=== PATIENT | male | born 1975 | race Caucasian/White ===

== ENCOUNTER → 2019-03-25 | Outpatient (CLI) | payer OTHER | LOC: EDSTATUS 11:44 → LAB 12:59 → LAB SHORT 12:59 | DX: J02.9 Acute pharyngitis, unspecified (principal) | CPT/HCPCS: 87081 ==

== ENCOUNTER 2024-05-09 07:10 | Day surgery (SDC) | payer OTHER ==
[~2024-05-09] VITALS: Ht 185.4 cm; Wt 119.2 kg
[~2024-05-09 07:10] MED LIST: Lactated Ringer's 1,000 ML IV SCH
[2024-05-09 07:54] VITALS: BP 142/85
--- NOTE | 2024-05-09 07:59 | NUR ---
History, Chart, Medications and Allergies reviewed before start of procedure. Lungs clear T/O to Auscultation. Pre-Op teaching done. Pt verbalizes understanding. Patient states colon prep results clear. Patient confirms NPO status and agrees with scheduled surgery. Patient States Post-Procedure ride home has been arranged.
[2024-05-09] MEDS ORDERED: propofoL 40 ML IV ONE (08:44)
--- NOTE | 2024-05-09 08:54 | NUR ---
05/09/24 [id number] Rafat Chan History, Chart, Medications and Allergies reviewed before start of procedure.
[2024-05-09] MEDS ORDERED: propofoL 20 ML IV ONE (08:55)
[2024-05-09 09:26] VITALS: BP 122/66
--- NOTE | 2024-05-09 09:44 | NUR ---
Discharge instructions reviewed with patient. Patient verbalizes understanding. Copy given to patient to take home. Patient States Post-Procedure ride home has been arranged. Discharged via wheelchair to private car for ride home.
== END 2024-05-09 09:45 | disposition home or self-care (01) ==
LOC: ORSCMMR 07:10 → ORD 08:30 → ORSCMMR 08:30
PROVIDERS: Internal Medicine Gastroenterology
PROC: 0DBM8ZX Excision of Descending Colon, Via Natural or Artificial Opening Endoscopic, Diagnostic (ICD-10-PCS; principal; 2024-05-09 08:30)
PROC: 0DBL8ZX Excision of Transverse Colon, Via Natural or Artificial Opening Endoscopic, Diagnostic (ICD-10-PCS; principal; 2024-05-09 08:30)
DX: Z12.11 Encounter for screening for malignant neoplasm of colon (principal); K63.5 Polyp of colon; G47.30 Sleep apnea, unspecified; E66.9 Obesity, unspecified; Z68.34 Body mass index [BMI] 34.0-34.9, adult
CPT/HCPCS: 88305; J2704; J7120